=== PATIENT | male | born 1960 | race Caucasian/White ===

== ENCOUNTER → 2016-04-11 | Day surgery (SDC) | payer MEDICARE ==
[2016-04-10 11:31] LABS: BILIRUBIN NEGATIVE (NEGATIVE); BLOOD NEGATIVE (NEGATIVE); CLARITY CLEAR (CLEAR); COLOR YELLOW (YELLOW); GLUCOSE NEGATIVE (NEGATIVE); KETONE NEGATIVE (NEGATIVE); LEUKO ESTERASE NEGATIVE (NEGATIVE); NITRITE NEGATIVE (NEGATIVE); PH 6.5 (5.0-9.0); PROTEIN NEGATIVE (NEGATIVE); SPECIFIC GRAVITY 1.015 (1.005-1.030)
[2016-04-10 11:36] LABS: BACTERIA TRACE; RBC 0-2 rbc/hpf (0-2)
[2016-04-10 11:39] LABS: BASO % 0.4 % (0.0-1.0); EOS # 0.1 10*3/uL (0.0-0.4); EOS % 2.1 % (1.0-4.0); HEMATOCRIT 45.5 % (42.0-52.0); HEMOGLOBIN 15.6 g/dl (14.0-18.0); LYMPH # 1.5 10*3/uL (1.3-4.4); LYMPH % 27.2 % (27.0-41.0); MEAN CELL VOLUME 86.2 fl (80.0-94.0); MEAN CORPUSCULAR HGB 29.5 pg (27.0-31.0); MEAN CORPUSCULAR HGB CONC 34.3 g/dl (33.0-37.0); MEAN PLATELET VOLUME 10.4 fl (9.6-12.3); MONO # 0.5 10*3/uL (0.1-1.0); NEUT # 3.3 10*3/uL (2.3-7.9); NEUT % 61.3 % (47.0-73.0); PLATELET COUNT AUTOMATED 222 10*3/uL (130-400); RED BLOOD COUNT 5.28 10*6/uL (4.50-5.90); RED CELL DISTRI WIDTH 12.4 % (0-14.5); WHITE BLOOD COUNT 5.4 10*3/uL (4.8-10.8)
[2016-04-10 11:57] LABS: BUN 16 mg/dl (7-24); CARBON DIOXIDE 28 mmol/L (21-32); CHLORIDE 104 mmol/L (98-107); EST GLOM FILT AFRICAN AMERICAN > 60 ml/min; GLUCOSE 113 mg/dL (65-99); POTASSIUM 4.4 mmol/L (3.5-5.1); SODIUM 141 mmol/L (136-145)
[2016-04-10 12:03] LABS: INTERNATIONAL NORM RATIO 0.9 (2.0-3.5)
[~2016-04-11] VITALS: Ht 177.8 cm; Wt 138.3 kg
[~2016-04-11] MED LIST: AMBIEN10 MG PO; ATARAX25 MG PO; ATIVAN0.5 MG PO; BACTRIM DS 8001 TA1; CALCIUM 500 +1 EAC3 PO; CALCIUM1 CAP PO; CARDIZEM CD120 MG PO; CARDIZEM120 MG PO; CIPRO500 MG PO; CIPROFLOXACIN500 M4 PO; CIPROFLOXACIN500 MG PO; CLARITIN10 MG PO; CORDROL20 MG PO; DIOVAN HCT 25 M1 TA1 PO; DIOVAN160 MG PO; DOXYCYCLINE HY100 M3 PO; EPI EZ PEN0.5 MG/ML IM; EPI EZ PEN1 MG/ML IM; ETODOLAC400 MG PO; FLAGYL500 MG; FLAGYL500 MG PO; FLEXERIL10 MG PO; FLOMAX0.4 MG PO; GLIPIZIDE5 M1 PO; GLUCOPHAGE500 MG PO; HYDROCHLOROTHIA25 MG PO; HYDROCODONE BIT1 T11 PO; IBU-8800 MG PO; KEFLEX500 M1 PO; KEFLEX500 MG PO; LEVOFLOXACIN500 MG PO; LORAZEPAM; MEDROL DOSEPAK4 MG PO; METFORMIN500 MG PO; METRONIDAZOLE500 M1 PO; MOBIC7.5 MG PO; MOTRIN800 MG PO; Motrin,Rufen800 MG PO; NAPROSYN250 MG PO; NEURONTIN300 MG PO; NEURONTIN600 MG PO; NORCO 325 MG-51 TAB PO; NORCO 5-325 TA1 EACH PO; ORPHENADRINE E100 MG PO; OYSTER CALCIUM1 TA2; PAXIL20 MG PO; PHENERGAN W/DM120 ML PO; PLAVIX75 M1 PO; PLAVIX75 MG PO; PREVACID30 M1 PO; PRILOSEC10 M1 PO; PRILOSEC20 MG PO; PROAIR HFA0.09 MG/AC IH; PROCARDIA XL30 MG PO; Percocet 325 MG1 TAB PO; SEPTRA DS 800 M1 TAB PO; SILVADENE1% TP; TRAMADOL50 MG PO; ULTRAM50 MG PO; VICODIN 5/500 505 MG PO; VITAMIN D2400 IU PO; VITAMIN D350000 UNIT PO; VITAMIN D50000 I1 PO; ZANAFLEX CAPSULE4 MG PO; ZANTAC150 MG PO; ZITHROMAX Z PA250 MG PO; ZOCOR20 MG; ZOFRAN4 MG PO; ZOLPIDEM10 M1; Zofran4 MG PO
--- NOTE | ~2016-04-11 | O ---
[place], [place] OPERATIVE NOTE NAME: DAVID FERNÁNDEZ UNIT #: [id number] ROOM: DOCTOR: JAYRO AMAYA MD BIRTHDATE: [birth year] DOS: 04/11/2016 PREOPERATIVE DIAGNOSIS: History of invasive squamous cell carcinoma, left neck. POSTOPERATIVE DIAGNOSIS: History of invasive squamous cell carcinoma, left neck. PROCEDURE: Excision of left neck mass. SURGEON: Jayro Amaya MD BRAKE LININGS COATER: MS3. ANESTHESIA: MAC. INDICATIONS: This is a 56-year-old gentleman who had a previous left neck mass excised, which showed invasive squamous cell CA with positive margins. It was decided to take the patient back to the operating room today for reexcision. Procedure and its complications explained to the patient in detail preoperatively. Complications that were discussed included, but were not limited to bleeding, infection, hematoma/seroma/abscess formation, prolonged postoperative pain, and damage to underlying vital structures, he agreed to proceed. DESCRIPTION OF PROCEDURE: After identifying the patient, the patient was brought to the operating suite and laid in the supine position. After adequately positioning the patient, IV sedation was administered and a timeout procedure was called. The parts were then painted and draped in the usual sterile fashion. The previously placed sutures were removed and an elliptical incision was marked around the previously made incisional scar. Local anesthesia was infiltrated (1% plain lidocaine). The mass was excised to the depth of the fascia in the neck and sent for histopathological diagnosis. Hemostasis was achieved with the help of electrocautery and then the subcutaneous tissue was irrigated and approximated with the help of 3-0 Vicryl in an interrupted fashion. The skin edges were approximated with the help of 3-0 nylon in an interrupted fashion and dressing was given. The patient tolerated the procedure well and was taken to the recovery room in stable fashion. There were no complications. Dr. Jayro Amaya, the attending surgeon, was present throughout the operating case. [place], [place] OPERATIVE NOTE NAME: DAVID FERNÁNDEZ UNIT #: [id number] ROOM: DOCTOR: JAYRO AMAYA MD BIRTHDATE: [birth year] Jayro Amaya MD CM:OPRECORD:OPERATIVE NOTE [id number] JAYRO AMAYA MD 04/11/16 1106 interface
[2016-04-11 09:52] VITALS: BP 116/73
[2016-04-11 10:40] VITALS: BP 109/72
[2016-04-11 10:55] VITALS: BP 112/79
[2016-04-11 11:10] VITALS: BP 121/83
[2016-04-11 11:25] VITALS: BP 124/78
[2016-04-11 11:38] VITALS: BP 118/65
== END | disposition home or self-care (01) ==
LOC: SDC 04-10 08:00
PROVIDERS: Surgery
DX: C44.42 Squamous cell carcinoma of skin of scalp and neck (principal); R73.03 Prediabetes; Z79.02 Long term (current) use of antithrombotics/antiplatelets

== ENCOUNTER 2016-12-28 19:44 | Emergency (ER) | payer MEDICARE, OTHER ==
[~2016-12-28] VITALS: Wt 113.4 kg
[2016-12-28 20:03] LABS: BASO % 0.4 % (0.0-1.0); EOS # 0.2 10*3/uL (0.0-0.4); EOS % 1.9 % (1.0-4.0); HEMATOCRIT 47.9 % (42.0-52.0); HEMOGLOBIN 16.3 g/dl (14.0-18.0); LYMPH # 1.2 10*3/uL (1.3-4.4); LYMPH % 15.4 % (27.0-41.0); MEAN CELL VOLUME 86.6 fl (80.0-94.0); MEAN CORPUSCULAR HGB 29.5 pg (27.0-31.0); MEAN PLATELET VOLUME 10.6 fl (9.6-12.3); MONO # 0.9 10*3/uL (0.1-1.0); MONO % 10.7 % (3.0-9.0); NEUT # 5.8 10*3/uL (2.3-7.9); NEUT % 71.4 % (47.0-73.0); PLATELET COUNT AUTOMATED 195 10*3/uL (130-400); RED BLOOD COUNT 5.53 10*6/uL (4.50-5.90); WHITE BLOOD COUNT 8.1 10*3/uL (4.8-10.8)
[2016-12-28 20:13] LABS: ACT PARTIAL THROMBO TIME 22.1 SECONDS (20.8-31.5)
[2016-12-28 20:19] LABS: ALBUMIN 3.9 gm/dl (3.1-4.5); ALKALINE PHOSPHATASE 67 U/L (45-117); BUN 13 mg/dl (7-24); CHLORIDE 100 mmol/L (98-107); CREATININE 1.13 mg/dL (0.70-1.30); MAGNESIUM 1.9 mg/dL (1.5-2.1); SGOT/AST 18 IU/L (3-35); SGPT/ALT 26 U/L (12-78); SODIUM 137 mmol/L (136-145)
[2016-12-28 20:20] LABS: TROPONIN I < 0.015 ng/ml (<0.045)
[2016-12-28 21:57] VITALS: BP 124/61
[2016-12-28] MEDS ORDERED: PREDNISONE20 M1 PO (23:09)
[2016-12-28] MEDS ORDERED: ZITHROMAX250 MG PO (23:09)
== END 2016-12-28 23:34 | disposition home or self-care (01) ==
LOC: ED 19:44
PROVIDERS: Emergency Medicine Emergency Medical Services
DX: J44.1 Chronic obstructive pulmonary disease with (acute) exacerbation (principal); I10 Essential (primary) hypertension; E78.5 Hyperlipidemia, unspecified; E11.9 Type 2 diabetes mellitus without complications; K21.9 Gastro-esophageal reflux disease without esophagitis; E11.42 Type 2 diabetes mellitus with diabetic polyneuropathy; Z86.73 Personal history of transient ischemic attack (TIA), and cerebral infarction without residual deficits; Z79.899 Other long term (current) drug therapy

== ENCOUNTER 2017-04-21 17:50 | Emergency (ER) | payer MEDICARE, OTHER ==
[~2017-04-21] VITALS: Ht 177.8 cm; Wt 134.7 kg
[~2017-04-21 17:50] MED LIST changes: +PREDNISONE20 M1 PO; +ZITHROMAX250 MG PO
[2017-04-21 18:04] VITALS: BP 124/68
== END 2017-04-21 18:39 | disposition home or self-care (01) ==
LOC: ED 17:50
DX: S61.012A Laceration without foreign body of left thumb without damage to nail, initial encounter (principal); J44.9 Chronic obstructive pulmonary disease, unspecified; E11.9 Type 2 diabetes mellitus without complications; K21.9 Gastro-esophageal reflux disease without esophagitis; I10 Essential (primary) hypertension; E11.40 Type 2 diabetes mellitus with diabetic neuropathy, unspecified; Z86.73 Personal history of transient ischemic attack (TIA), and cerebral infarction without residual deficits; Z79.899 Other long term (current) drug therapy; W45.8XXA Other foreign body or object entering through skin, initial encounter; Y93.89 Activity, other specified; Y92.89 Other specified places as the place of occurrence of the external cause; Y99.8 Other external cause status

== ENCOUNTER 2017-07-25 12:44 | Emergency (ER) | payer OTHER, MEDICARE ==
[~2017-07-25] VITALS: Ht 177.8 cm; Wt 133.8 kg
[2017-07-25 13:19] LABS: BASO % 0.4 % (0.0-1.0); EOS # 0.1 10*3/uL (0.0-0.4); EOS % 2.7 % (1.0-4.0); HEMATOCRIT 46.1 % (42.0-52.0); HEMOGLOBIN 15.9 g/dl (14.0-18.0); LYMPH # 1.5 10*3/uL (1.3-4.4); LYMPH % 33.9 % (27.0-41.0); MEAN CELL VOLUME 86.5 fl (80.0-94.0); MEAN CORPUSCULAR HGB 29.8 pg (27.0-31.0); MEAN CORPUSCULAR HGB CONC 34.5 g/dl (33.0-37.0); MEAN PLATELET VOLUME 10.8 fl (9.6-12.3); MONO # 0.5 10*3/uL (0.1-1.0); MONO % 10.3 % (3.0-9.0); NEUT # 2.3 10*3/uL (2.3-7.9); NEUT % 52.5 % (47.0-73.0); PLATELET COUNT AUTOMATED 189 10*3/uL (130-400); RED BLOOD COUNT 5.33 10*6/uL (4.50-5.90); RED CELL DISTRI WIDTH 13.2 % (0-14.5); WHITE BLOOD COUNT 4.5 10*3/uL (4.8-10.8)
[2017-07-25 13:28] LABS: ACT PARTIAL THROMBO TIME 22.2 SECONDS (20.8-31.5)
[2017-07-25 13:39] LABS: ALBUMIN 3.6 gm/dl (3.1-4.5); ALKALINE PHOSPHATASE 60 U/L (45-117); BUN 15 mg/dl (7-24); CHLORIDE 102 mmol/L (98-107); CREATININE 1.17 mg/dL (0.70-1.30); SGOT/AST 18 IU/L (3-35); SGPT/ALT 31 U/L (12-78); SODIUM 138 mmol/L (136-145); TOTAL PROTEIN 6.9 gm/dL (6.4-8.2)
[2017-07-25 13:45] LABS: TROPONIN I < 0.015 ng/ml (<0.045)
[2017-07-25 13:49] VITALS: BP 146/80
[2017-07-25 15:30] LABS: BILIRUBIN NEGATIVE (NEGATIVE); BLOOD NEGATIVE (NEGATIVE); CLARITY SL CLOUDY (CLEAR); COLOR YELLOW (YELLOW); GLUCOSE NEGATIVE (NEGATIVE); KETONE NEGATIVE (NEGATIVE); LEUKO ESTERASE NEGATIVE (NEGATIVE); NITRITE NEGATIVE (NEGATIVE); PH 7.5 (5.0-9.0); SPECIFIC GRAVITY <= 1.005 (1.005-1.030)
[2017-07-25 16:05] LABS: BACTERIA TRACE; WBC 0-2 wbc/hpf (0-5)
== END 2017-07-25 16:30 | disposition home or self-care (01) ==
LOC: ED 12:44
PROVIDERS: Emergency Medicine
DX: S16.1XXA Strain of muscle, fascia and tendon at neck level, initial encounter (principal); S29.8XXA Other specified injuries of thorax, initial encounter; S39.81XA Other specified injuries of abdomen, initial encounter; N28.1 Cyst of kidney, acquired; E66.01 Morbid (severe) obesity due to excess calories; I71.2 Thoracic aortic aneurysm, without rupture; K21.9 Gastro-esophageal reflux disease without esophagitis; I10 Essential (primary) hypertension; E11.9 Type 2 diabetes mellitus without complications; I25.2 Old myocardial infarction; Z86.73 Personal history of transient ischemic attack (TIA), and cerebral infarction without residual deficits; Z90.49 Acquired absence of other specified parts of digestive tract; Z68.41 Body mass index [BMI] 40.0-44.9, adult; Z98.890 Other specified postprocedural states; Z87.891 Personal history of nicotine dependence; Z79.899 Other long term (current) drug therapy; V49.88XA Car occupant (driver) (passenger) injured in other specified transport accidents, initial encounter; Y93.89 Activity, other specified; Y92.89 Other specified places as the place of occurrence of the external cause; Y99.9 Unspecified external cause status

== ENCOUNTER 2017-08-15 23:58 | Inpatient (IN) | payer MEDICARE, OTHER ==
[~2017-08-15] VITALS: Ht 175.2 cm; Wt 133.8 kg
--- NOTE | ~2017-08-15 | PR ---
[place], [place] PROGRESS NOTE NAME: DAVID FERNÁNDEZ [facility] #: [id number] UNIT #: [id number] ROOM: 531 DOCTOR: CLARITZA KWOK MD BIRTHDATE: [birth year] DOS: 08/18/2017 SUBJECTIVE: The patient was seen today in the Cardiology Department just prior to a stress test. He is a 57-year-old man with a history of acid reflux and small ascending thoracic root dilation, who presented with chest discomfort and hypertension. Serial cardiac biomarkers have been normal and his EKG shows no acute changes. PHYSICAL EXAMINATION: VITAL SIGNS: Today his pulse is 74 and regular, blood pressure is 96/82. He is afebrile. NECK: Supple. He has no jugular distention. Carotids are full. LUNGS: Respirations are unlabored. CHEST: Clear to auscultation and percussion. The chest wall in the left anterior chest is slightly tender to palpation and partially reproduces his pains. HEART: Has a regular rhythm and S4 gallop. EXTREMITIES: Showed no edema. IMPRESSION: 1. Left precordial chest pain. 2. No evidence for acute coronary syndrome. 3. History of gastroesophageal reflux. 4. History of hypertension. 5. Type 2 diabetes mellitus. 6. Obesity. PLAN: We will proceed with an exercise myocardial perfusion study. Further recommendations will depend upon the results of his stress test. [facility] and I thank the hospitalist physicians for asking our advice regarding the patient's care. CLARITZA KWOK MD CM:PNTRANS [id number] CLARITZA KWOK MD 08/19/17 1213 interface
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
--- NOTE | ~2017-08-15 | PR ---
[place], [place] PROGRESS NOTE NAME: DAVID FERNÁNDEZ UNIT #: [id number] ROOM: 531 DOCTOR: SANDRA MONTERO MD BIRTHDATE: [birth year] DOS: 08/17/2017 CARDIOLOGY FOLLOWUP REASON FOR VISIT: Chest pain and hypertension. SUBJECTIVE: The patient is feeling better. Denies any chest pain or shortness of breath. No palpitation, no dizziness, no orthopnea, no fever and chills, no nausea or vomiting. REVIEW OF SYSTEMS: Review of the 8 systems negative except as mentioned above. RHYTHM STRIPS: The patient was currently off the monitor. PHYSICAL EXAMINATION: VITAL SIGNS: Blood pressure 100/56, pulse 68, respiratory rate was 18, weight 133.8 kilos, BMI 43.6. GENERAL: The patient is alert, comfort, in no acute distress. HEENT: Pupils are round and equal. No jaundice. Tongue was moist and pharynx was clear. NECK: Supple, no distended neck veins, no carotid bruit. Thyroid not palpable. CHEST: Symmetrical, nontender. LUNGS: Clear to auscultation bilaterally. No rales. HEART: Regular rhythm, no S3, no palpable thrills. ABDOMEN: Morbidly obese, nontender. Bowel sounds normal. EXTREMITIES: Showed trace edema and distal pulses palpable. SKIN: Warm and dry. No cyanosis, no clubbing. NEUROLOGIC: The patient is alert and oriented. No focal neurologic deficit. MEDICATIONS AND LABORATORIES: Reviewed. IMPRESSION: 1. Chest pain, myocardial infarction ruled out. 2. Hypertension. 3. Diabetes type 2. 4. Morbid obesity. 5. Acid reflux. 6. Ascending thoracic aortic root dilatation 3.7 cm. RECOMMENDATIONS: 1. Continue current medications. He had a few episodes of chest pain at rest. 2. All questions answered about his dilated thoracic aorta which is 3.7 cm. 3. Nuclear stress test is tomorrow. 4. Risk factor modification for diet, exercise and weight loss discussed. [place], [place] PROGRESS NOTE NAME: DAVID FERNÁNDEZ UNIT #: [id number] ROOM: 531 DOCTOR: SANDRA MONTERO MD BIRTHDATE: [birth year] SANDRA MONTERO MD CM:LOLLY [id number] SANDRA MONTERO MD 08/18/17 0047 interface
[2017-08-15 23:58] VITALS: BP 128/87
[2017-08-16] MEDS ORDERED: VALSARTAN40 MG PO (00:05)
[2017-08-16] MEDS ORDERED: ASPIRIN CHEWABL81 MG PO (00:05)
[2017-08-16] MEDS ORDERED: VITAMIN D50000 UNIT PO (00:06)
[2017-08-16] MEDS ORDERED: SIMVASTATIN40 MG PO (00:06)
[2017-08-16] MEDS ORDERED: METOPROLOL SUCC25 M2 PO (00:06)
[2017-08-16] MEDS ORDERED: MELATONIN1 M3 SL (00:06)
[2017-08-16 00:27] LABS: ACT PARTIAL THROMBO TIME 21.8 SECONDS (20.8-31.5)
[2017-08-16 00:30] VITALS: BP 110/64
[2017-08-16 00:32] LABS: BASO % 0.6 % (0.0-1.0); EOS # 0.2 10*3/uL (0.0-0.4); EOS % 2.1 % (1.0-4.0); HEMATOCRIT 46.2 % (42.0-52.0); HEMOGLOBIN 16.1 g/dl (14.0-18.0); LYMPH # 3.1 10*3/uL (1.3-4.4); LYMPH % 42.9 % (27.0-41.0); MEAN CELL VOLUME 86.7 fl (80.0-94.0); MEAN CORPUSCULAR HGB 30.2 pg (27.0-31.0); MEAN CORPUSCULAR HGB CONC 34.8 g/dl (33.0-37.0); MONO # 0.8 10*3/uL (0.1-1.0); MONO % 10.5 % (3.0-9.0); NEUT # 3.2 10*3/uL (2.3-7.9); NEUT % 43.8 % (47.0-73.0); PLATELET COUNT AUTOMATED 195 10*3/uL (130-400); RED BLOOD COUNT 5.33 10*6/uL (4.50-5.90); WHITE BLOOD COUNT 7.2 10*3/uL (4.8-10.8)
[2017-08-16 00:35] LABS: ALBUMIN 3.7 gm/dl (3.1-4.5); ALKALINE PHOSPHATASE 51 U/L (45-117); BUN 15 mg/dl (7-24); CHLORIDE 105 mmol/L (98-107); CREATININE 1.01 mg/dL (0.70-1.30); POTASSIUM 4.2 mmol/L (3.5-5.1); SGOT/AST 19 IU/L (3-35); SGPT/ALT 27 U/L (12-78); SODIUM 138 mmol/L (136-145); TOTAL PROTEIN 7.1 gm/dL (6.4-8.2)
[2017-08-16 00:41] LABS: TROPONIN I < 0.015 ng/ml (<0.045)
[2017-08-16 01:00] VITALS: BP 113/77
[2017-08-16 03:41] LABS: BASO % 0.5 % (0.0-1.0); EOS # 0.2 10*3/uL (0.0-0.4); EOS % 2.7 % (1.0-4.0); HEMATOCRIT 43.2 % (42.0-52.0); HEMOGLOBIN 14.9 g/dl (14.0-18.0); LYMPH # 2.6 10*3/uL (1.3-4.4); LYMPH % 39.8 % (27.0-41.0); MEAN CELL VOLUME 87.1 fl (80.0-94.0); MEAN CORPUSCULAR HGB CONC 34.5 g/dl (33.0-37.0); MEAN PLATELET VOLUME 10.8 fl (9.6-12.3); MONO # 0.6 10*3/uL (0.1-1.0); MONO % 9.8 % (3.0-9.0); PLATELET COUNT AUTOMATED 181 10*3/uL (130-400); RED BLOOD COUNT 4.96 10*6/uL (4.50-5.90); RED CELL DISTRI WIDTH 13.1 % (0-14.5); WHITE BLOOD COUNT 6.4 10*3/uL (4.8-10.8)
[2017-08-16 04:01] LABS: ALBUMIN 3.6 gm/dl (3.1-4.5); ALKALINE PHOSPHATASE 45 U/L (45-117); BUN 17 mg/dl (7-24); CHLORIDE 103 mmol/L (98-107); CREATININE 0.95 mg/dL (0.70-1.30); PHOSPHOROUS 4.1 mg/dL (2.5-4.9); POTASSIUM 4.1 mmol/L (3.5-5.1); SGOT/AST 16 IU/L (3-35); SGPT/ALT 25 U/L (12-78); SODIUM 138 mmol/L (136-145); TOTAL PROTEIN 6.6 gm/dL (6.4-8.2)
[2017-08-16 04:08] LABS: FREE T4 1.03 ng/dl (0.76-1.46)
[2017-08-16 08:00] VITALS: BP 99/59
[2017-08-16 12:00] VITALS: BP 106/60
[2017-08-16 16:00] VITALS: BP 94/60
[2017-08-16 20:00] VITALS: BP 94/55
[2017-08-17] VITALS: BP 100/67
[2017-08-17 04:00] VITALS: BP 95/56
[2017-08-17 08:00] VITALS: BP 100/56
[2017-08-17 12:00] VITALS: BP 104/63
[2017-08-17 16:00] VITALS: BP 90/48
[2017-08-17 20:00] VITALS: BP 96/72
[2017-08-18] VITALS: BP 92/58
[2017-08-18 04:00] VITALS: BP 96/64
[2017-08-18 08:00] VITALS: BP 96/82
[2017-08-18 12:00] VITALS: BP 106/70
== END 2017-08-18 17:19 | disposition home or self-care (01) | DRG 206 ==
LOC: ED 23:58 → 5E 08-16 00:57 → EDHOLD 08-16 00:57 → 5E 08-16 01:01
PROVIDERS: Family Medicine; Student in an Organized Health Care Education/Training Program
PROC: 3E033HZ Introduction of Radioactive Substance into Peripheral Vein, Percutaneous Approach (ICD-10-PCS; principal; 2017-08-18)
PROC: 4A02XM4 Measurement of Cardiac Total Activity, External Approach (ICD-10-PCS; principal; 2017-08-18)
DX: M94.0 Chondrocostal junction syndrome [Tietze] (principal); E11.40 Type 2 diabetes mellitus with diabetic neuropathy, unspecified; I71.2 Thoracic aortic aneurysm, without rupture; Z68.41 Body mass index [BMI] 40.0-44.9, adult; E11.65 Type 2 diabetes mellitus with hyperglycemia; E66.01 Morbid (severe) obesity due to excess calories; D72.820 Lymphocytosis (symptomatic); N40.1 Benign prostatic hyperplasia with lower urinary tract symptoms; N39.46 Mixed incontinence; I25.118 Atherosclerotic heart disease of native coronary artery with other forms of angina pectoris; J44.9 Chronic obstructive pulmonary disease, unspecified; K21.9 Gastro-esophageal reflux disease without esophagitis; I11.9 Hypertensive heart disease without heart failure; Z86.73 Personal history of transient ischemic attack (TIA), and cerebral infarction without residual deficits; Z90.49 Acquired absence of other specified parts of digestive tract; Z87.891 Personal history of nicotine dependence; Z82.49 Family history of ischemic heart disease and other diseases of the circulatory system; Z79.01 Long term (current) use of anticoagulants; Z79.82 Long term (current) use of aspirin; Z79.899 Other long term (current) drug therapy

== ENCOUNTER 2017-08-25 16:07 | Emergency (ER) | payer MEDICARE, OTHER ==
[~2017-08-25] VITALS: Wt 134.7 kg
[~2017-08-25 16:07] MED LIST changes: +ASPIRIN CHEWABL81 MG PO; +MELATONIN1 M3 SL; +METOPROLOL SUCC25 M2 PO; +SIMVASTATIN40 MG PO; +VALSARTAN40 MG PO; +VITAMIN D50000 UNIT PO
[2017-08-25 16:08] VITALS: BP 112/69
[2017-08-25] MEDS ORDERED: LIDEX 0.05% CRE15 GM T (16:16)
== END 2017-08-25 16:18 | disposition home or self-care (01) ==
LOC: ED 16:07
DX: S50.862A Insect bite (nonvenomous) of left forearm, initial encounter (principal); K21.9 Gastro-esophageal reflux disease without esophagitis; J44.9 Chronic obstructive pulmonary disease, unspecified; E11.9 Type 2 diabetes mellitus without complications; N40.0 Benign prostatic hyperplasia without lower urinary tract symptoms; I10 Essential (primary) hypertension; Z90.49 Acquired absence of other specified parts of digestive tract; W57.XXXA Bitten or stung by nonvenomous insect and other nonvenomous arthropods, initial encounter; Y93.89 Activity, other specified; Y92.89 Other specified places as the place of occurrence of the external cause; Y99.8 Other external cause status

== ENCOUNTER 2017-08-29 12:17 | Emergency (ER) | payer MEDICARE, OTHER ==
[~2017-08-29] VITALS: Ht 177.8 cm
[~2017-08-29 12:17] MED LIST changes: +LIDEX 0.05% CRE15 GM T
[2017-08-29 12:18] VITALS: BP 148/88
[2017-08-29] MEDS ORDERED: KEFLEX500 M1 PO (12:20)
[2017-08-29] MEDS ORDERED: CLINDAMYCIN150 MG PO (13:02)
== END 2017-08-29 13:04 | disposition home or self-care (01) ==
LOC: ED 12:17
DX: L02.414 Cutaneous abscess of left upper limb (principal); J44.1 Chronic obstructive pulmonary disease with (acute) exacerbation; K21.9 Gastro-esophageal reflux disease without esophagitis; I10 Essential (primary) hypertension; E11.65 Type 2 diabetes mellitus with hyperglycemia; Z79.4 Long term (current) use of insulin; Z79.82 Long term (current) use of aspirin; Z79.899 Other long term (current) drug therapy

== ENCOUNTER → 2017-09-05 | Outpatient (CLI) | payer MEDICARE ==
[~2017-09-05] MED LIST changes: +CIPRO250 MG PO; +CLINDAMYCIN150 MG PO
[2017-09-05 11:42] LABS: BILIRUBIN NEGATIVE (NEGATIVE); BLOOD NEGATIVE (NEGATIVE); CLARITY CLEAR (CLEAR); COLOR YELLOW (YELLOW); GLUCOSE NEGATIVE (NEGATIVE); KETONE NEGATIVE (NEGATIVE); LEUKO ESTERASE NEGATIVE (NEGATIVE); NITRITE NEGATIVE (NEGATIVE); PH 5.5 (5.0-9.0); SPECIFIC GRAVITY <= 1.005 (1.005-1.030); UROBILINOGEN 0.2 E.U./dl (0.2-1.0)
[2017-09-05 11:44] LABS: BASO % 0.4 % (0.0-1.0); EOS # 0.1 10*3/uL (0.0-0.4); EOS % 1.5 % (1.0-4.0); HEMATOCRIT 43.6 % (42.0-52.0); HEMOGLOBIN 14.9 g/dl (14.0-18.0); LYMPH # 1.8 10*3/uL (1.3-4.4); MEAN CELL VOLUME 88.1 fl (80.0-94.0); MEAN CORPUSCULAR HGB 30.1 pg (27.0-31.0); MEAN CORPUSCULAR HGB CONC 34.2 g/dl (33.0-37.0); MEAN PLATELET VOLUME 10.8 fl (9.6-12.3); MONO # 0.5 10*3/uL (0.1-1.0); MONO % 9.6 % (3.0-9.0); NEUT # 2.9 10*3/uL (2.3-7.9); NEUT % 54.3 % (47.0-73.0); PLATELET COUNT AUTOMATED 181 10*3/uL (130-400); RED BLOOD COUNT 4.95 10*6/uL (4.50-5.90); RED CELL DISTRI WIDTH 12.9 % (0-14.5); WHITE BLOOD COUNT 5.4 10*3/uL (4.8-10.8)
[2017-09-05 12:12] LABS: ALBUMIN 3.6 gm/dl (3.1-4.5); ALKALINE PHOSPHATASE 55 U/L (45-117); BUN 20 mg/dl (7-24); CHLORIDE 104 mmol/L (98-107); CREATININE 1.05 mg/dL (0.70-1.30); POTASSIUM 4.3 mmol/L (3.5-5.1); SGOT/AST 17 IU/L (3-35); SGPT/ALT 24 U/L (12-78); SODIUM 139 mmol/L (136-145); TOTAL PROTEIN 6.9 gm/dL (6.4-8.2)
[2017-09-05 12:28] LABS: WBC 0-2 wbc/hpf (0-5)
== END | disposition home or self-care (01) ==
LOC: LAB 10:30 → US 10:30
PROVIDERS: Urology
DX: N28.1 Cyst of kidney, acquired (principal); I10 Essential (primary) hypertension; N39.0 Urinary tract infection, site not specified; N28.89 Other specified disorders of kidney and ureter

== ENCOUNTER 2017-09-17 14:13 | Emergency (ER) | payer MEDICARE ==
[~2017-09-17] VITALS: Ht 177.8 cm; Wt 132.4 kg
[~2017-09-17 14:13] MED LIST changes: -CIPRO250 MG PO
[2017-09-17 15:24] LABS: BILIRUBIN NEGATIVE (NEGATIVE); BLOOD NEGATIVE (NEGATIVE); CLARITY CLEAR (CLEAR); COLOR YELLOW (YELLOW); GLUCOSE NEGATIVE (NEGATIVE); KETONE TRACE (NEGATIVE); LEUKO ESTERASE NEGATIVE (NEGATIVE); NITRITE NEGATIVE (NEGATIVE); PH 5.5 (5.0-9.0); SPECIFIC GRAVITY 1.025 (1.005-1.030)
[2017-09-17 15:31] LABS: BACTERIA TRACE; MUCOUS 1+
[2017-09-17 15:32] LABS: EPITHELIAL CELLS 0-2; RBC 0-2 rbc/hpf (0-2)
[2017-09-17 16:18] LABS: BASO % 0.3 % (0.0-1.0); EOS # 0.1 10*3/uL (0.0-0.4); EOS % 0.9 % (1.0-4.0); HEMATOCRIT 45.5 % (42.0-52.0); HEMOGLOBIN 15.4 g/dl (14.0-18.0); LYMPH # 1.8 10*3/uL (1.3-4.4); LYMPH % 19.2 % (27.0-41.0); MEAN CORPUSCULAR HGB 29.8 pg (27.0-31.0); MEAN CORPUSCULAR HGB CONC 33.8 g/dl (33.0-37.0); MEAN PLATELET VOLUME 11.2 fl (9.6-12.3); MONO % 10.4 % (3.0-9.0); NEUT # 6.6 10*3/uL (2.3-7.9); PLATELET COUNT AUTOMATED 189 10*3/uL (130-400); RED BLOOD COUNT 5.17 10*6/uL (4.50-5.90); RED CELL DISTRI WIDTH 13.1 % (0-14.5); WHITE BLOOD COUNT 9.6 10*3/uL (4.8-10.8)
[2017-09-17 16:32] LABS: ALBUMIN 3.7 gm/dl (3.1-4.5); ALKALINE PHOSPHATASE 63 U/L (45-117); BUN 23 mg/dl (7-24); CHLORIDE 103 mmol/L (98-107); CREATININE 1.26 mg/dL (0.70-1.30); POTASSIUM 3.8 mmol/L (3.5-5.1); SGOT/AST 9 IU/L (3-35); SGPT/ALT 23 U/L (12-78); SODIUM 137 mmol/L (136-145); TOTAL PROTEIN 7.6 gm/dL (6.4-8.2)
[2017-09-17 17:29] VITALS: BP 140/72
[2017-09-17] MEDS ORDERED: FLAGYL500 MG PO (18:07)
[2017-09-17] MEDS ORDERED: CIPRO250 MG PO (18:07)
== END 2017-09-17 18:15 | disposition home or self-care (01) ==
LOC: ED 14:13
PROVIDERS: Nurse Practitioner Family
DX: K57.92 Diverticulitis of intestine, part unspecified, without perforation or abscess without bleeding (principal); Z79.899 Other long term (current) drug therapy; Z79.82 Long term (current) use of aspirin; Z87.891 Personal history of nicotine dependence

== ENCOUNTER → 2018-02-16 | Outpatient (CLI) | payer MEDICARE ==
[~2018-02-16] MED LIST changes: +ANAPROX DS550 MG PO; +AUGMENTIN 875-875 MG PO; +CIPRO250 MG PO
== END | disposition home or self-care (01) ==
LOC: MRI 10:56
DX: M19.011 Primary osteoarthritis, right shoulder (principal); M75.51 Bursitis of right shoulder

== ENCOUNTER → 2018-04-20 | Day surgery (SDC) | payer MEDICARE | END | disposition home or self-care (01) | DX: M75.51 Bursitis of right shoulder (principal); M19.011 Primary osteoarthritis, right shoulder; M75.81 Other shoulder lesions, right shoulder; I10 Essential (primary) hypertension; E11.9 Type 2 diabetes mellitus without complications; F32.9 Major depressive disorder, single episode, unspecified; G89.29 Other chronic pain; Z79.899 Other long term (current) drug therapy; Z90.49 Acquired absence of other specified parts of digestive tract; Z98.890 Other specified postprocedural states; Z82.49 Family history of ischemic heart disease and other diseases of the circulatory system ==

== ENCOUNTER → 2018-10-15 | Outpatient (CLI) | payer MEDICARE | END | disposition home or self-care (01) | LOC: RAD 14:47 | DX: M25.611 Stiffness of right shoulder, not elsewhere classified (principal); M79.2 Neuralgia and neuritis, unspecified ==

== ENCOUNTER 2019-04-05 17:45 | Inpatient (IN) | payer MEDICARE ==
[~2019-04-05] VITALS: Ht 177.8 cm; Wt 139.5 kg
[2019-04-05 17:45] VITALS: BP 107/80
[2019-04-05 20:05] VITALS: BP 109/67
[2019-04-05 20:31] LABS: BILIRUBIN NEGATIVE (NEGATIVE); BLOOD NEGATIVE (NEGATIVE); CLARITY CLEAR (CLEAR); COLOR YELLOW (YELLOW); GLUCOSE NEGATIVE (NEGATIVE); KETONE NEGATIVE (NEGATIVE); LEUKO ESTERASE NEGATIVE (NEGATIVE); NITRITE NEGATIVE (NEGATIVE); PH 5.5 (5.0-9.0); SPECIFIC GRAVITY >= 1.030 (1.005-1.030)
[2019-04-05 21:10] LABS: BASO % 0.5 % (0.0-1.0); EOS # 0.1 10*3/uL (0.0-0.4); EOS % 2.1 % (1.0-4.0); HEMATOCRIT 48.1 % (42.0-52.0); HEMOGLOBIN 16.2 g/dl (14.0-18.0); LYMPH # 2.1 10*3/uL (1.3-4.4); LYMPH % 32.3 % (27.0-41.0); MEAN CELL VOLUME 90.4 fl (80.0-94.0); MEAN CORPUSCULAR HGB 30.5 pg (27.0-31.0); MEAN CORPUSCULAR HGB CONC 33.7 g/dl (33.0-37.0); MONO # 0.6 10*3/uL (0.1-1.0); MONO % 9.5 % (3.0-9.0); NEUT # 3.6 10*3/uL (2.3-7.9); NEUT % 55.4 % (47.0-73.0); PLATELET COUNT AUTOMATED 213 10*3/uL (130-400); RED BLOOD COUNT 5.32 10*6/uL (4.50-5.90); RED CELL DISTRI WIDTH 12.4 % (0-14.5); WHITE BLOOD COUNT 6.5 10*3/uL (4.8-10.8)
[2019-04-05 21:27] LABS: ALBUMIN 3.7 gm/dl (3.1-4.5); ALKALINE PHOSPHATASE 57 U/L (45-117); BUN 18 mg/dl (7-24); CHLORIDE 105 mmol/L (98-107); CREATININE 1.04 mg/dL (0.70-1.30); LIPASE 113 U/L (73-393); POTASSIUM 4.3 mmol/L (3.5-5.1); SGOT/AST 13 IU/L (3-35); SGPT/ALT 31 U/L (12-78); SODIUM 137 mmol/L (136-145); TOTAL PROTEIN 7.2 gm/dL (6.4-8.2); TROPONIN I < 0.015 ng/ml (<0.045)
[2019-04-05 21:30] LABS: ACT PARTIAL THROMBO TIME 23.9 SECONDS (20.0-32.1); INTERNATIONAL NORM RATIO 0.9 (2.0-3.5)
[2019-04-05 23:05] VITALS: BP 108/69
[2019-04-05 23:40] VITALS: BP 106/70
[2019-04-06] VITALS (7 sets, daily range): BP systolic 90–116; BP diastolic 51–80
--- NOTE | 2019-04-06 00:40 | NUR ---
A 59, admitted to , under the services of FRANCISCO Shook DO with a diagnosis of CHEST PAIN. Chief complaint is COUGH,SPUTUM. Patient arrived via wheel chair from ER. Monitor applied. Initial assessment completed. Vital signs taken and recorded. FRANCISCO SHOOK DO notified of admission to the unit. Orders received. See assessment for past medical history, medications and allergies. Patient and/or family oriented to unit. [facility]LO[facility] visitation policy reviewed. Clothing/patient valuable form completed. ATIYA ZENG
[2019-04-06] MEDS ORDERED: METFORMIN XR500 MG PO (00:49)
[2019-04-06] MEDS ORDERED: DOXAZOSIN MESYLA1 MG PO (00:51)
[2019-04-06] MEDS ORDERED: TIZANIDINE HCL4 MG PO (00:52)
--- NOTE | 2019-04-06 01:21 | NUR ---
NOTIFIED DR. RIBEIRO MED REC IS UP TO DATE. PATIENT REQUESTING A SLEEPING PILL. 15MG RESTORIL ORDERED. WILL CONTINUE TO MONITOR.
[2019-04-06 06:57] LABS: BASO % 0.5 % (0.0-1.0); EOS # 0.1 10*3/uL (0.0-0.4); EOS % 1.9 % (1.0-4.0); HEMATOCRIT 45.8 % (42.0-52.0); HEMOGLOBIN 15.2 g/dl (14.0-18.0); LYMPH # 2.4 10*3/uL (1.3-4.4); LYMPH % 40.1 % (27.0-41.0); MEAN CELL VOLUME 90.3 fl (80.0-94.0); MEAN CORPUSCULAR HGB CONC 33.2 g/dl (33.0-37.0); MEAN PLATELET VOLUME 10.9 fl (9.6-12.3); MONO # 0.6 10*3/uL (0.1-1.0); MONO % 9.3 % (3.0-9.0); NEUT # 2.9 10*3/uL (2.3-7.9); PLATELET COUNT AUTOMATED 188 10*3/uL (130-400); RED BLOOD COUNT 5.07 10*6/uL (4.50-5.90); RED CELL DISTRI WIDTH 12.5 % (0-14.5); WHITE BLOOD COUNT 5.9 10*3/uL (4.8-10.8)
[2019-04-06 07:22] LABS: CHLORIDE 103 mmol/L (98-107); POTASSIUM 4.1 mmol/L (3.5-5.1); SODIUM 138 mmol/L (136-145)
[2019-04-06 07:39] LABS: BUN 18 mg/dl (7-24); CHOLESTEROL 186 mg/dL (<200); CREATININE 1.05 mg/dL (0.70-1.30); HDL CHOLESTEROL 32 mg/dl (40-60); LDL CHOLESTEROL 103 mg/dL (9-159); PHOSPHOROUS 4.1 mg/dL (2.5-4.9); TRIGLYCERIDES 256 mg/dl (<150); VLDL CHOLESTEROL 51 mg/dL (6-40)
--- NOTE | 2019-04-06 08:14 | NUR ---
PT AMBULATED TO BR HR 160, UPON RETURNING TO BED HR DECREASED TO 90'S. PT STATES HE GETS SHORT OF BREATH. DR BELTRAN ON UNIT AND NOTIFIED.
--- NOTE | 2019-04-06 10:51 | NUR ---
CONSULT CALLED TO THE ANSWERING SERVICE FOR DR BURNS.
--- NOTE | 2019-04-06 10:53 | NUR ---
DR FORREST CALLED NOTIFIED OF CONSULT. HE STATES HE WILL SEE HIM LATER TODAY
--- NOTE | 2019-04-06 12:40 | NUR ---
[employer] in to talk to patient. Patient states lives at home with . There are few steps in the home. Physician: [facility] Home health services: none Patient's level of ADLs: INDEPENDENT Patient has working utilities: all working DME: none Follow-up physician's appointment after d/c: will be made by hospitalist nurse director upon discharge Does patient want to access PORTAL?: no Discharge plan discussed with patient, he states he lives at home with , he is independent in adls and ambulation, he states he will be returning home when medically stable and denies any home needs, case management will follow. BEN CHACON
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
[2019-04-07] VITALS: BP 96/50
[2019-04-07 08:00] VITALS: BP 102/76
[2019-04-07 12:00] VITALS: BP 97/64
[2019-04-07 16:00] VITALS: BP 93/66
[2019-04-07 20:00] VITALS: BP 96/59
[2019-04-08] VITALS: BP 98/62
--- NOTE | 2019-04-08 00:47 | NUR ---
PRN RESTORIL EFFECTIVE, PATIENT SLEEPING WITH EASY AND REGULAR RESPERS ON ROOM AIR. CALL LIGHT IS WITHIN REACH.
[2019-04-08 05:43] LABS: BASO % 0.3 % (0.0-1.0); EOS # 0.2 10*3/uL (0.0-0.4); EOS % 2.4 % (1.0-4.0); HEMATOCRIT 46.1 % (42.0-52.0); HEMOGLOBIN 15.5 g/dl (14.0-18.0); LYMPH # 2.3 10*3/uL (1.3-4.4); MEAN CELL VOLUME 88.5 fl (80.0-94.0); MEAN CORPUSCULAR HGB 29.8 pg (27.0-31.0); MEAN CORPUSCULAR HGB CONC 33.6 g/dl (33.0-37.0); MEAN PLATELET VOLUME 10.8 fl (9.6-12.3); MONO # 0.6 10*3/uL (0.1-1.0); MONO % 10.1 % (3.0-9.0); NEUT # 3.1 10*3/uL (2.3-7.9); NEUT % 49.9 % (47.0-73.0); PLATELET COUNT AUTOMATED 188 10*3/uL (130-400); RED BLOOD COUNT 5.21 10*6/uL (4.50-5.90); RED CELL DISTRI WIDTH 12.2 % (0-14.5); WHITE BLOOD COUNT 6.1 10*3/uL (4.8-10.8)
[2019-04-08 06:02] LABS: CREATININE 1.27 mg/dL (0.70-1.30)
[2019-04-08 08:00] VITALS: BP 102/64
--- NOTE | 2019-04-08 08:30 | NUR ---
Patient resting quietly with no c/o discomfort. Respirations easy and regular. Vital signs stable. No overt distress. ATIYA OVALLE R
--- NOTE | 2019-04-08 09:00 | NUR ---
case management visits with patient, he will return home when medically stable and denies any home needs, he is having a stress test today
--- NOTE | 2019-04-08 10:20 | NUR ---
INFORMED CONSENT OBTAINED FOR A LEXISCAN STRESS TEST WITH DR. FORREST. RESTING EKG NSR WITH A HT RT OF 86 AND BP OF 94/60. POX 97% VIA RA, LUNGS CLEAR FADUMO. COMPLETED ONE MINUTE OF A LEXISCAN PROTOCOL RECEIVING LEXISCAN 0.4 MG OVER 10 SECONDS. DEVELOPED CHEST TIGHTNESS THAT WAS RELIEVED IN RECOVERY. HAD A PEAK HT RT OF 115. WITH A BP OF 90/58. LAST RECOVERY HT RT OF 105, WITH A BP OF 98/66. AWAITING NUCLEAR IMAGING IN STABLE CONDITION.
[2019-04-08] MEDS ORDERED: MOTRIN 600 MG E4 TAB PO (14:48)
--- NOTE | 2019-04-08 15:48 | NUR ---
Discharge instructions reviewed with patient/family. Patient receptive and verbalizes understanding. Follow-up care arranged. Written instructions given to patient/family. ATIYA OVALLE
== END 2019-04-08 15:48 | disposition home or self-care (01) | DRG 206 ==
LOC: ED 17:45 → 4E 23:58 → EDHOLD 23:58 → 4E 04-06 00:13
PROVIDERS: Physician Assistant; Student in an Organized Health Care Education/Training Program; ADMIT Internal Medicine
PROC: 3E073KZ Introduction of Other Diagnostic Substance into Coronary Artery, Percutaneous Approach (ICD-10-PCS; principal; 2019-04-08)
PROC: 4A02XM4 Measurement of Cardiac Total Activity, External Approach (ICD-10-PCS; principal; 2019-04-08)
DX: M94.0 Chondrocostal junction syndrome [Tietze] (principal); I50.32 Chronic diastolic (congestive) heart failure; E44.0 Moderate protein-calorie malnutrition; Z68.41 Body mass index [BMI] 40.0-44.9, adult; K21.9 Gastro-esophageal reflux disease without esophagitis; N40.0 Benign prostatic hyperplasia without lower urinary tract symptoms; E66.01 Morbid (severe) obesity due to excess calories; E11.65 Type 2 diabetes mellitus with hyperglycemia; E78.00 Pure hypercholesterolemia, unspecified; I11.0 Hypertensive heart disease with heart failure; Z90.49 Acquired absence of other specified parts of digestive tract; Z82.49 Family history of ischemic heart disease and other diseases of the circulatory system; Z80.3 Family history of malignant neoplasm of breast; Z83.3 Family history of diabetes mellitus; Z86.73 Personal history of transient ischemic attack (TIA), and cerebral infarction without residual deficits; Z79.82 Long term (current) use of aspirin; Z79.899 Other long term (current) drug therapy

== ENCOUNTER 2019-04-28 18:01 | Emergency (ER) | payer MEDICARE ==
[~2019-04-28] VITALS: Ht 177.8 cm; Wt 138.3 kg
[~2019-04-28 18:01] MED LIST changes: +DOXAZOSIN MESYLA1 MG PO; +METFORMIN XR500 MG PO; +MOTRIN 600 MG E4 TAB PO; +TIZANIDINE HCL4 MG PO
[2019-04-28 18:34] LABS: BASO % 0.3 % (0.0-1.0); EOS # 0.1 10*3/uL (0.0-0.4); HEMATOCRIT 46.9 % (42.0-52.0); HEMOGLOBIN 15.8 g/dl (14.0-18.0); LYMPH % 32.7 % (27.0-41.0); MEAN CELL VOLUME 89.8 fl (80.0-94.0); MEAN CORPUSCULAR HGB 30.3 pg (27.0-31.0); MEAN CORPUSCULAR HGB CONC 33.7 g/dl (33.0-37.0); MEAN PLATELET VOLUME 10.9 fl (9.6-12.3); MONO # 0.6 10*3/uL (0.1-1.0); MONO % 9.4 % (3.0-9.0); NEUT # 3.3 10*3/uL (2.3-7.9); NEUT % 55.4 % (47.0-73.0); PLATELET COUNT AUTOMATED 201 10*3/uL (130-400); RED BLOOD COUNT 5.22 10*6/uL (4.50-5.90); RED CELL DISTRI WIDTH 12.5 % (0-14.5)
[2019-04-28 18:45] LABS: ACT PARTIAL THROMBO TIME 23.8 SECONDS (20.0-32.1); INTERNATIONAL NORM RATIO 0.9 (2.0-3.5)
[2019-04-28 18:52] LABS: ALKALINE PHOSPHATASE 57 U/L (45-117); BUN 15 mg/dl (7-24); CHLORIDE 104 mmol/L (98-107); CREATININE 1.13 mg/dL (0.70-1.30); POTASSIUM 4.1 mmol/L (3.5-5.1); SGOT/AST 15 IU/L (3-35); SGPT/ALT 35 U/L (12-78); SODIUM 138 mmol/L (136-145); TOTAL PROTEIN 7.4 gm/dL (6.4-8.2)
[2019-04-28 18:53] LABS: TROPONIN I < 0.015 ng/ml (<0.045)
[2019-04-28 20:11] LABS: LIPASE 103 U/L (73-393)
[2019-04-28 22:30] VITALS: BP 115/69
[2019-04-28] MEDS ORDERED: CARAFATE1 GM/10 ML PO (23:16)
[2019-06-04] MEDS ORDERED: PROTONIX20 MG PO (10:12)
== END 2019-04-28 23:51 | disposition home or self-care (01) ==
LOC: ED 18:01
PROVIDERS: Emergency Medicine
DX: K21.9 Gastro-esophageal reflux disease without esophagitis (principal); E66.01 Morbid (severe) obesity due to excess calories; I11.0 Hypertensive heart disease with heart failure; I50.9 Heart failure, unspecified; E11.9 Type 2 diabetes mellitus without complications; E78.00 Pure hypercholesterolemia, unspecified; Z87.891 Personal history of nicotine dependence; Z79.899 Other long term (current) drug therapy; Z79.82 Long term (current) use of aspirin; Z68.41 Body mass index [BMI] 40.0-44.9, adult; Z86.73 Personal history of transient ischemic attack (TIA), and cerebral infarction without residual deficits

== ENCOUNTER → 2019-06-09 | Day surgery (SDC) | payer MEDICARE ==
[~2019-06-09] VITALS: Ht 177.8 cm; Wt 136.1 kg
[~2019-06-09] MED LIST changes: +CARAFATE1 GM/10 ML PO; +PROTONIX20 MG PO
[2019-06-09 06:46] VITALS: BP 107/71
[2019-06-09 07:19] VITALS: BP 120/75
[2019-06-09 07:34] VITALS: BP 120/74
[2019-06-09 07:47] VITALS: BP 109/64
== END | disposition home or self-care (01) ==
LOC: SDC 06-03 08:00
DX: K29.50 Unspecified chronic gastritis without bleeding (principal); E11.9 Type 2 diabetes mellitus without complications; E03.9 Hypothyroidism, unspecified; J44.9 Chronic obstructive pulmonary disease, unspecified; F32.9 Major depressive disorder, single episode, unspecified; I10 Essential (primary) hypertension; E66.9 Obesity, unspecified; Z68.41 Body mass index [BMI] 40.0-44.9, adult; Z82.49 Family history of ischemic heart disease and other diseases of the circulatory system; Z83.3 Family history of diabetes mellitus

== ENCOUNTER → 2020-03-13 | Outpatient (CLI) | payer MEDICARE | END | disposition home or self-care (01) | LOC: COVID19 11:33 | PROVIDERS: ATTEND Family Medicine | DX: Z20.828 Contact with and (suspected) exposure to other viral communicable diseases (principal) ==

== ENCOUNTER 2020-06-02 21:34 | Emergency (ER) | payer OTHER ==
[~2020-06-02] VITALS: Ht 177.8 cm; Wt 131.5 kg
[2020-06-02 21:49] VITALS: BP 139/74
[2020-06-02 22:11] LABS: BASO % 0.3 % (0.0-1.0); EOS # 0.1 10*3/uL (0.0-0.4); HEMATOCRIT 47.1 % (42.0-52.0); LYMPH # 0.6 10*3/uL (1.3-4.4); LYMPH % 8.2 % (27.0-41.0); MEAN CELL VOLUME 88.5 fl (80.0-94.0); MEAN CORPUSCULAR HGB 30.3 pg (27.0-31.0); MEAN CORPUSCULAR HGB CONC 34.2 g/dl (33.0-37.0); MEAN PLATELET VOLUME 10.8 fl (9.6-12.3); MONO # 0.6 10*3/uL (0.1-1.0); NEUT # 6.5 10*3/uL (2.3-7.9); NEUT % 83.2 % (47.0-73.0); PLATELET COUNT AUTOMATED 212 10*3/uL (130-400); RED BLOOD COUNT 5.32 10*6/uL (4.50-5.90); WHITE BLOOD COUNT 7.8 10*3/uL (4.8-10.8)
[2020-06-02 22:28] LABS: ALBUMIN 3.8 gm/dl (3.1-4.5); ALKALINE PHOSPHATASE 55 U/L (45-117); BUN 20 mg/dl (7-24); CHLORIDE 104 mmol/L (98-107); CREATININE 1.14 mg/dL (0.70-1.30); LIPASE 193 U/L (73-393); SGOT/AST 8 IU/L (3-35); SGPT/ALT 28 U/L (12-78); SODIUM 136 mmol/L (136-145); TOTAL PROTEIN 7.1 gm/dL (6.4-8.2)
[2020-06-02 22:39] LABS: TROPONIN I < 0.015 ng/ml (<0.045)
[2020-06-02 22:43] LABS: THYROID STIM HORMONE (HS) 1.48 uIU/ml (0.358-4.75)
[2020-06-02 23:18] LABS: BILIRUBIN 1+ (Negative); BLOOD Negative (Negative); CLARITY Clear (Clear); GLUCOSE Negative (Negative); KETONE Trace (Negative); LEUKO ESTERASE Negative (Negative); NITRITE Negative (Negative); SPECIFIC GRAVITY >= 1.030 (1.001-1.030)
[2020-06-02 23:21] LABS: COLOR Dark Yellow (Yellow)
[2020-06-02 23:40] LABS: BACTERIA TRACE; EPITHELIAL CELLS 0-2; MUCOUS 2+; WBC 0-2 wbc/hpf (0-5)
[2020-06-03] MEDS ORDERED: DICYCLOMINE HCL20 MG PO (00:59)
[2020-06-03] MEDS ORDERED: ZOFRAN4 MG PO (00:59)
== END 2020-06-03 01:14 | disposition home or self-care (01) ==
LOC: ED 21:34
PROVIDERS: Emergency Medicine
DX: K52.89 Other specified noninfective gastroenteritis and colitis (principal); J44.9 Chronic obstructive pulmonary disease, unspecified; K21.9 Gastro-esophageal reflux disease without esophagitis; F32.9 Major depressive disorder, single episode, unspecified; I10 Essential (primary) hypertension; Z86.73 Personal history of transient ischemic attack (TIA), and cerebral infarction without residual deficits; Z79.899 Other long term (current) drug therapy; Z98.890 Other specified postprocedural states; Z90.49 Acquired absence of other specified parts of digestive tract

== ENCOUNTER → 2020-08-25 | Outpatient (CLI) | payer OTHER ==
[~2020-08-25] MED LIST changes: +DICYCLOMINE HCL20 MG PO
== END | disposition home or self-care (01) ==
LOC: RAD 14:44
PROVIDERS: ATTEND Family Medicine
DX: M17.11 Unilateral primary osteoarthritis, right knee (principal)

== ENCOUNTER 2020-12-20 15:31 | Emergency (ER) | payer OTHER ==
[~2020-12-20] VITALS: Ht 177.8 cm; Wt 131.5 kg
[2020-12-20 17:12] VITALS: BP 121/78
[2020-12-20 19:29] LABS: HEMATOCRIT 45.7 % (42.0-52.0); MEAN CELL VOLUME 89.8 fl (80.0-94.0); MEAN CORPUSCULAR HGB 29.9 pg (27.0-31.0); MEAN CORPUSCULAR HGB CONC 33.3 g/dl (33.0-37.0); MEAN PLATELET VOLUME 10.8 fl (9.6-12.3); PLATELET COUNT AUTOMATED 181 10*3/uL (130-400); RED BLOOD COUNT 5.09 10*6/uL (4.50-5.90); RED CELL DISTRI WIDTH 13.2 % (0-14.5); WHITE BLOOD COUNT 14.3 10*3/uL (4.8-10.8)
[2020-12-20 19:48] LABS: ALBUMIN 3.6 gm/dl (3.1-4.5); ALKALINE PHOSPHATASE 63 U/L (45-117); BUN 14 mg/dl (7-24); CHLORIDE 99 mmol/L (98-107); SGOT/AST 13 IU/L (3-35); SGPT/ALT 23 U/L (12-78); SODIUM 135 mmol/L (136-145); TOTAL PROTEIN 7.5 gm/dL (6.4-8.2)
[2020-12-20 19:51] LABS: TOTAL CELLS COUNTED 100 #CELLS
[2020-12-20 19:51] LABS: BILIRUBIN 1+ (Negative); BLOOD 1+ (Negative); CLARITY Cloudy (Clear); COLOR Dark Yellow (Yellow); GLUCOSE Negative (Negative); KETONE Trace (Negative); LEUKO ESTERASE 2+ (Negative); NITRITE Positive (Negative); SPECIFIC GRAVITY >= 1.030 (1.001-1.030)
[2020-12-20 19:52] LABS: PLATELET SUFFICIENCY NORMAL (NORMAL); POLYCHROMASIA SLIGHT
[2020-12-20 20:05] LABS: BACTERIA 4+; EPITHELIAL CELLS 0-2; WBC 51-100 wbc/hpf (0-5)
[2020-12-20] MEDS ORDERED: CIPRO500 MG PO (20:53)
== END 2020-12-20 22:21 | disposition home or self-care (01) ==
LOC: ED 15:31
PROVIDERS: Emergency Medicine; Physician Assistant
DX: N39.0 Urinary tract infection, site not specified (principal); Z79.899 Other long term (current) drug therapy; Z79.82 Long term (current) use of aspirin; Z90.49 Acquired absence of other specified parts of digestive tract; Z90.89 Acquired absence of other organs; Z87.891 Personal history of nicotine dependence

== ENCOUNTER 2021-04-09 15:48 | Emergency (ER) | payer OTHER ==
[2021-04-09 16:02] VITALS: BP 118/64
[2021-04-09] MEDS ORDERED: PROVENTIL HFA6.7 GM INH (21:39)
[2021-04-09] MEDS ORDERED: AMOXICILLIN500 M2 PO (21:39)
[2021-04-09] MEDS ORDERED: PREDNISONE20 M1 PO (21:39)
== END 2021-04-09 22:41 | disposition home or self-care (01) ==
LOC: ED 15:48
DX: U07.1 COVID-19 (principal); J02.9 Acute pharyngitis, unspecified; Z79.899 Other long term (current) drug therapy; Z79.82 Long term (current) use of aspirin; Z87.891 Personal history of nicotine dependence

== ENCOUNTER 2021-08-08 15:08 | Emergency (ER) | payer OTHER ==
[~2021-08-08 15:08] MED LIST changes: +AMOXICILLIN500 M2 PO; +PROVENTIL HFA6.7 GM INH
[2021-08-08 15:26] VITALS: BP 132/86
[2021-08-08 19:37] LABS: BASO % 0.2 % (0.0-1.0); EOS # 0.2 10*3/uL (0.0-0.4); LYMPH # 2.1 10*3/uL (1.3-4.4); LYMPH % 25.5 % (27.0-41.0); MEAN CELL VOLUME 86.7 fl (80.0-94.0); MEAN CORPUSCULAR HGB 28.9 pg (27.0-31.0); MEAN CORPUSCULAR HGB CONC 33.4 g/dl (33.0-37.0); MEAN PLATELET VOLUME 10.8 fl (9.6-12.3); MONO # 0.6 10*3/uL (0.1-1.0); MONO % 7.2 % (3.0-9.0); NEUT # 5.4 10*3/uL (2.3-7.9); PLATELET COUNT AUTOMATED 261 10*3/uL (130-400); RED BLOOD COUNT 5.77 10*6/uL (4.50-5.90); RED CELL DISTRI WIDTH 13.1 % (0-14.5); WHITE BLOOD COUNT 8.4 10*3/uL (4.8-10.8)
[2021-08-08 20:04] LABS: ALKALINE PHOSPHATASE 61 U/L (45-117); BUN 15 mg/dl (7-24); CHLORIDE 102 mmol/L (98-107); CREATININE 0.96 mg/dL (0.70-1.30); POTASSIUM 4.4 mmol/L (3.5-5.1); SGOT/AST 16 IU/L (3-35); SGPT/ALT 24 U/L (12-78); SODIUM 136 mmol/L (136-145); TOTAL PROTEIN 8.3 gm/dL (6.4-8.2)
[2021-08-08 20:27] LABS: BILIRUBIN Negative (Negative); BLOOD Negative (Negative); CLARITY Clear (Clear); COLOR Yellow (Yellow); GLUCOSE Negative (Negative); KETONE Negative (Negative); LEUKO ESTERASE Negative (Negative); NITRITE Negative (Negative); PH 5.5 (4.5-8.0)
[2021-08-08 20:44] LABS: RBC 0-2 rbc/hpf (0-2)
[2021-08-08 20:45] LABS: BACTERIA TRACE
[2021-08-08] MEDS ORDERED: MEDI-MECLIZINE25 MG PO (22:00)
== END 2021-08-08 22:21 | disposition home or self-care (01) ==
LOC: ED 15:08
PROVIDERS: Physician Assistant
DX: R42 Dizziness and giddiness (principal); H92.01 Otalgia, right ear; R51.9 Headache, unspecified; Z88.8 Allergy status to other drugs, medicaments and biological substances; Z79.899 Other long term (current) drug therapy; Z79.82 Long term (current) use of aspirin; Z98.890 Other specified postprocedural states; Z90.49 Acquired absence of other specified parts of digestive tract; Z90.89 Acquired absence of other organs; Z87.891 Personal history of nicotine dependence

== ENCOUNTER 2021-11-30 14:08 | Emergency (ER) | payer OTHER ==
[~2021-11-30] VITALS: Ht 177.8 cm; Wt 129.3 kg
[~2021-11-30 14:08] MED LIST changes: +MEDI-MECLIZINE25 MG PO
[2021-11-30 14:31] VITALS: BP 142/78
[2021-11-30] MEDS ORDERED: PEPCID40 MG PO (15:10)
== END 2021-11-30 15:38 | disposition home or self-care (01) ==
LOC: ED 14:08
DX: T63.441A Toxic effect of venom of bees, accidental (unintentional), initial encounter (principal); Z88.8 Allergy status to other drugs, medicaments and biological substances; Z79.899 Other long term (current) drug therapy; Z79.82 Long term (current) use of aspirin; Z98.890 Other specified postprocedural states; Z90.49 Acquired absence of other specified parts of digestive tract; Y92.89 Other specified places as the place of occurrence of the external cause

== ENCOUNTER 2021-12-16 22:33 | Emergency (ER) | payer OTHER ==
[~2021-12-16] VITALS: Ht 180.3 cm; Wt 126.1 kg
[~2021-12-16 22:33] MED LIST changes: +PEPCID40 MG PO
[2021-12-16 23:42] LABS: BASO % 0.3 % (0.0-1.0); EOS # 0.1 10*3/uL (0.0-0.4); EOS % 0.9 % (1.0-4.0); HEMATOCRIT 49.4 % (42.0-52.0); LYMPH # 2.2 10*3/uL (1.3-4.4); LYMPH % 15.6 % (27.0-41.0); MEAN CELL VOLUME 87.4 fl (80.0-94.0); MEAN CORPUSCULAR HGB 29.4 pg (27.0-31.0); MEAN CORPUSCULAR HGB CONC 33.6 g/dl (33.0-37.0); MEAN PLATELET VOLUME 10.7 fl (9.6-12.3); MONO # 0.9 10*3/uL (0.1-1.0); MONO % 6.4 % (3.0-9.0); NEUT # 10.6 10*3/uL (2.3-7.9); NEUT % 76.5 % (47.0-73.0); PLATELET COUNT AUTOMATED 223 10*3/uL (130-400); RED BLOOD COUNT 5.65 10*6/uL (4.50-5.90); RED CELL DISTRI WIDTH 13.2 % (0-14.5); WHITE BLOOD COUNT 13.9 10*3/uL (4.8-10.8)
[2021-12-16 23:54] LABS: ACT PARTIAL THROMBO TIME 26.2 SECONDS (20.0-32.1)
[2021-12-16 23:57] LABS: ALKALINE PHOSPHATASE 60 U/L (45-117); BUN 17 mg/dl (7-24); CHLORIDE 103 mmol/L (98-107); CREATININE 1.12 mg/dL (0.70-1.30); POTASSIUM 4.1 mmol/L (3.5-5.1); SGOT/AST 13 IU/L (3-35); SGPT/ALT 26 U/L (12-78); SODIUM 137 mmol/L (136-145); TOTAL PROTEIN 7.4 gm/dL (6.4-8.2)
[2021-12-17 00:18] LABS: LIPASE 96 U/L (73-393)
[2021-12-17 01:11] LABS: BILIRUBIN Negative (Negative); BLOOD Negative (Negative); CLARITY Clear (Clear); COLOR Yellow (Yellow); GLUCOSE Negative (Negative); KETONE Trace (Negative); LEUKO ESTERASE Negative (Negative); NITRITE Negative (Negative); PH 5.5 (4.5-8.0)
[2021-12-17 01:30] LABS: MUCOUS 1+; WBC 0-2 wbc/hpf (0-5)
[2021-12-17] MEDS ORDERED: AMOX-CLAV 875-1 EACH PO (05:16)
[2021-12-17 07:49] VITALS: BP 138/64
== END 2021-12-17 08:38 | disposition home or self-care (01) ==
LOC: ED 22:33
PROVIDERS: Family Medicine
DX: K57.32 Diverticulitis of large intestine without perforation or abscess without bleeding (principal); E66.01 Morbid (severe) obesity due to excess calories; Z87.442 Personal history of urinary calculi; Z88.8 Allergy status to other drugs, medicaments and biological substances; Z79.899 Other long term (current) drug therapy; Z79.2 Long term (current) use of antibiotics; Z79.82 Long term (current) use of aspirin; Z90.49 Acquired absence of other specified parts of digestive tract; Z90.89 Acquired absence of other organs; Z98.890 Other specified postprocedural states; Z87.891 Personal history of nicotine dependence; Z68.30 Body mass index [BMI] 30.0-30.9, adult

== ENCOUNTER 2021-12-19 08:59 | Observation (INO) | payer OTHER ==
[~2021-12-19] VITALS: Ht 177.8 cm; Wt 128.9 kg
[~2021-12-19 08:59] MED LIST changes: +AMOX-CLAV 875-1 EACH PO
[2021-12-19 09:06] VITALS: BP 145/103
[2021-12-19 09:21] VITALS: BP 142/96
[2021-12-19 10:42] LABS: BASO % 0.5 % (0.0-1.0); EOS # 0.1 10*3/uL (0.0-0.4); EOS % 2.3 % (1.0-4.0); LYMPH # 1.3 10*3/uL (1.3-4.4); LYMPH % 20.5 % (27.0-41.0); MEAN CORPUSCULAR HGB CONC 34.1 g/dl (33.0-37.0); MEAN PLATELET VOLUME 10.6 fl (9.6-12.3); MONO # 0.6 10*3/uL (0.1-1.0); MONO % 9.9 % (3.0-9.0); NEUT # 4.1 10*3/uL (2.3-7.9); NEUT % 66.6 % (47.0-73.0); PLATELET COUNT AUTOMATED 176 10*3/uL (130-400); RED BLOOD COUNT 5.23 10*6/uL (4.50-5.90); RED CELL DISTRI WIDTH 13.2 % (0-14.5); WHITE BLOOD COUNT 6.2 10*3/uL (4.8-10.8)
[2021-12-19 10:57] LABS: ALKALINE PHOSPHATASE 57 U/L (45-117); BUN 17 mg/dl (7-24); CHLORIDE 105 mmol/L (98-107); LIPASE 98 U/L (73-393); POTASSIUM 4.3 mmol/L (3.5-5.1); SGOT/AST 11 IU/L (3-35); SGPT/ALT 31 U/L (12-78); SODIUM 139 mmol/L (136-145); TOTAL PROTEIN 7.1 gm/dL (6.4-8.2)
[2021-12-19] MEDS ORDERED: CYCLOBENZAPRIN7.5 M2 PO (12:05)
[2021-12-19 12:23] LABS: BILIRUBIN 1+ (Negative); BLOOD Negative (Negative); CLARITY Clear (Clear); COLOR Dark Yellow (Yellow); GLUCOSE Negative (Negative); KETONE 1+ (Negative); LEUKO ESTERASE Negative (Negative); NITRITE Negative (Negative); PH 5.5 (4.5-8.0); SPECIFIC GRAVITY 1.025 (1.001-1.030)
[2021-12-19 12:51] LABS: MUCOUS 1+; WBC 0-2 wbc/hpf (0-5)
[2021-12-19 20:00] VITALS: BP 136/81
[2021-12-20] VITALS: BP 123/73
[2021-12-20 06:06] LABS: BUN 12 mg/dl (7-24); CHLORIDE 108 mmol/L (98-107); CREATININE 0.97 mg/dL (0.70-1.30); POTASSIUM 4.2 mmol/L (3.5-5.1); SODIUM 142 mmol/L (136-145)
[2021-12-20 06:17] LABS: BASO % 0.4 % (0.0-1.0); EOS # 0.2 10*3/uL (0.0-0.4); EOS % 3.5 % (1.0-4.0); HEMATOCRIT 43.1 % (42.0-52.0); LYMPH # 1.7 10*3/uL (1.3-4.4); LYMPH % 34.1 % (27.0-41.0); MEAN CELL VOLUME 89.2 fl (80.0-94.0); MEAN CORPUSCULAR HGB 29.6 pg (27.0-31.0); MEAN CORPUSCULAR HGB CONC 33.2 g/dl (33.0-37.0); MEAN PLATELET VOLUME 10.9 fl (9.6-12.3); MONO # 0.6 10*3/uL (0.1-1.0); MONO % 12.2 % (3.0-9.0); NEUT # 2.4 10*3/uL (2.3-7.9); NEUT % 49.6 % (47.0-73.0); PLATELET COUNT AUTOMATED 174 10*3/uL (130-400); RED BLOOD COUNT 4.83 10*6/uL (4.50-5.90); WHITE BLOOD COUNT 4.9 10*3/uL (4.8-10.8)
[2021-12-20 08:00] VITALS: BP 126/76
[2021-12-20] MEDS ORDERED: METRONIDAZOLE500 M1 PO (11:52)
[2021-12-20] MEDS ORDERED: HYDROCODONE-AC1 EAC1 PO (11:52)
[2021-12-20] MEDS ORDERED: CIPRO500 MG PO (11:52)
[2021-12-20 12:00] VITALS: BP 128/67
[2021-12-20 16:00] VITALS: BP 100/59
== END 2021-12-20 17:29 | disposition home or self-care (01) ==
LOC: ED 08:59 → EDHOLD 12:13 → 4E 12:13 → EDHOLD 13:38 → 4E 17:28
PROVIDERS: Emergency Medicine; Student in an Organized Health Care Education/Training Program; ADMIT Family Medicine; ATTEND Family Medicine
DX: K57.92 Diverticulitis of intestine, part unspecified, without perforation or abscess without bleeding (principal); I11.0 Hypertensive heart disease with heart failure; I50.9 Heart failure, unspecified; N40.0 Benign prostatic hyperplasia without lower urinary tract symptoms; E78.00 Pure hypercholesterolemia, unspecified; K21.9 Gastro-esophageal reflux disease without esophagitis; E11.65 Type 2 diabetes mellitus with hyperglycemia; R11.2 Nausea with vomiting, unspecified; K82.4 Cholesterolosis of gallbladder; R82.2 Biliuria; E66.01 Morbid (severe) obesity due to excess calories; Z68.41 Body mass index [BMI] 40.0-44.9, adult; Z86.73 Personal history of transient ischemic attack (TIA), and cerebral infarction without residual deficits; Z90.49 Acquired absence of other specified parts of digestive tract; Z90.89 Acquired absence of other organs; Z88.8 Allergy status to other drugs, medicaments and biological substances; Z79.82 Long term (current) use of aspirin; Z79.899 Other long term (current) drug therapy

== ENCOUNTER → 2022-03-13 | Outpatient (CLI) | payer OTHER ==
[~2022-03-13] MED LIST changes: +CYCLOBENZAPRIN7.5 M2 PO; +HYDROCODONE-AC1 EAC1 PO
== END | disposition home or self-care (01) ==
LOC: RAD 14:30
PROVIDERS: ATTEND Family Medicine
DX: R05.9 Cough, unspecified (principal)

== ENCOUNTER → 2023-03-03 | Outpatient (CLI) | payer OTHER ==
[2023-03-03 11:48] LABS: BASO % 0.4 % (0.0-1.0); EOS # 0.2 10*3/uL (0.0-0.4); EOS % 1.7 % (1.0-4.0); HEMATOCRIT 49.4 % (42.0-52.0); LYMPH # 1.5 10*3/uL (1.3-4.4); LYMPH % 14.4 % (27.0-41.0); MEAN CELL VOLUME 88.4 fl (80.0-94.0); MEAN CORPUSCULAR HGB 29.9 pg (27.0-31.0); MEAN CORPUSCULAR HGB CONC 33.8 g/dl (33.0-37.0); MEAN PLATELET VOLUME 10.5 fl (9.6-12.3); MONO % 9.3 % (3.0-9.0); NEUT # 7.9 10*3/uL (2.3-7.9); NEUT % 73.9 % (47.0-73.0); PLATELET COUNT AUTOMATED 227 10*3/uL (130-400); RED BLOOD COUNT 5.59 10*6/uL (4.50-5.90); RED CELL DISTRI WIDTH 12.6 % (0-14.5); WHITE BLOOD COUNT 10.7 10*3/uL (4.8-10.8)
[2023-03-03 11:56] LABS: URINE CREATININE RANDOM 182.35 mg/dL
== END | disposition home or self-care (01) ==
LOC: LAB 11:14
PROVIDERS: ATTEND Nurse Practitioner Family
DX: J43.9 Emphysema, unspecified (principal); M25.78 Osteophyte, vertebrae; Z20.822 Contact with and (suspected) exposure to COVID-19; Z79.899 Other long term (current) drug therapy

== ENCOUNTER 2023-05-29 07:53 | Inpatient (IN) | payer OTHER ==
[~2023-05-29] VITALS: Ht 177.8 cm; Wt 124.0 kg
[2023-05-29 07:57] VITALS: BP 132/80
[2023-05-29] MEDS ORDERED: FAMOTIDINE 50 ML IV ONE (08:10)
[2023-05-29] MEDS ORDERED: ACETAMINOPHEN 325 MG TAB PO ONE (08:10)
[2023-05-29] MEDS ORDERED: SODIUM CHLORIDE 0.9% 1,000 ML IV SCH ×2 (08:10→14:00)
[2023-05-29] MEDS ORDERED: Ondansetron Hydrochloride 4 MG/2 ML VIAL IV ONE (08:10)
[2023-05-29 08:23] LABS: BASO % 0.3 % (0.0-1.0); EOS # 0.1 10*3/uL (0.0-0.4); EOS % 1.2 % (1.0-4.0); HEMATOCRIT 45.8 % (42.0-52.0); LYMPH # 1.2 10*3/uL (1.3-4.4); LYMPH % 12.8 % (27.0-41.0); MEAN CELL VOLUME 87.4 fl (80.0-94.0); MEAN CORPUSCULAR HGB 28.8 pg (27.0-31.0); MEAN PLATELET VOLUME 10.4 fl (9.6-12.3); MONO # 1.3 10*3/uL (0.1-1.0); MONO % 13.1 % (3.0-9.0); NEUT % 72.3 % (47.0-73.0); PLATELET COUNT AUTOMATED 226 10*3/uL (130-400); RED BLOOD COUNT 5.24 10*6/uL (4.50-5.90); RED CELL DISTRI WIDTH 12.9 % (0-14.5); WHITE BLOOD COUNT 9.7 10*3/uL (4.8-10.8)
[2023-05-29 08:33] LABS: ACT PARTIAL THROMBO TIME 27.9 SECONDS (20.0-32.1)
[2023-05-29 08:39] LABS: ALKALINE PHOSPHATASE 76 U/L (46-116); BUN 13 mg/dl (9-23); CHLORIDE 102 mmol/L (98-107); LIPASE 32 U/L (12-53); SGPT/ALT 10 U/L (5-49); TOTAL PROTEIN 7.5 gm/dL (6.0-8.0)
[2023-05-29] MEDS ORDERED: Ketorolac Tromethamine 30 MG/ML VIAL IV ONE (09:15)
[2023-05-29 09:35] LABS: BILIRUBIN 1+ (Negative); BLOOD Negative (Negative); CLARITY Clear (Clear); COLOR Dark Yellow (Yellow); GLUCOSE Negative (Negative); KETONE 1+ (Negative); LEUKO ESTERASE Negative (Negative); NITRITE Negative (Negative); PH 5.5 (4.5-8.0); SPECIFIC GRAVITY 1.025 (1.001-1.030)
[2023-05-29 09:46] LABS: MUCOUS TRACE
[2023-05-29] MEDS ORDERED: CIPROFLOXACIN 200 ML IV ONE (10:40)
[2023-05-29] MEDS ORDERED: METRONIDAZOLE 100 ML IV ONE (10:40)
[2023-05-29] MEDS ORDERED: Piperacillin Sodium/Tazobact 100 ML IV ONE (10:45)
[2023-05-29 11:35] VITALS: BP 103/66
[2023-05-29] MEDS ORDERED: BISACODYL 5 MG TAB PO PRN (12:15)
[2023-05-29] MEDS ORDERED: Ondansetron Hydrochloride 4 MG/2 ML VIAL IV PRN (12:15)
[2023-05-29] MEDS ORDERED: Piperacillin Sodium/Tazobact 0 ML IV SCH (12:45)
[2023-05-29] MEDS ORDERED: Acetaminophen/Hydrocodone ES 7.5/325 tablet PO PRN (12:45)
[2023-05-29] MEDS ORDERED: SODIUM CHLORIDE 0.9% 1,000 ML IV ONE (12:50)
[2023-05-29] MEDS ORDERED: Acetaminophen/Hydrocodone 5 MG/325 MG TABLET PO PRN (14:15)
[2023-05-29 16:22] VITALS: BP 130/80
[2023-05-29] MEDS ORDERED: Piperacillin Sodium/Tazobact 50 ML IV SCH (18:00)
[2023-05-29 18:42] VITALS: BP 127/69
[2023-05-29 20:00] VITALS: BP 124/76
[2023-05-29] MEDS ORDERED: MORPHINE Sulfate 2 MG/ML SYR IV PRN (21:05)
[2023-05-29 22:50] VITALS: BP 130/69
[2023-05-30 05:35] LABS: BUN 12 mg/dl (9-23); CHLORIDE 103 mmol/L (98-107); POTASSIUM 3.8 mmol/L (3.4-5.1)
[2023-05-30 05:56] LABS: BASO % 0.3 % (0.0-1.0); EOS # 0.1 10*3/uL (0.0-0.4); EOS % 1.3 % (1.0-4.0); HEMATOCRIT 42.9 % (42.0-52.0); LYMPH # 1.3 10*3/uL (1.3-4.4); LYMPH % 13.1 % (27.0-41.0); MEAN CELL VOLUME 89.9 fl (80.0-94.0); MEAN CORPUSCULAR HGB 28.7 pg (27.0-31.0); MEAN CORPUSCULAR HGB CONC 31.9 g/dl (33.0-37.0); MEAN PLATELET VOLUME 10.9 fl (9.6-12.3); MONO # 1.1 10*3/uL (0.1-1.0); MONO % 10.7 % (3.0-9.0); NEUT # 7.3 10*3/uL (2.3-7.9); NEUT % 74.2 % (47.0-73.0); PLATELET COUNT AUTOMATED 225 10*3/uL (130-400); RED BLOOD COUNT 4.77 10*6/uL (4.50-5.90); RED CELL DISTRI WIDTH 12.8 % (0-14.5); WHITE BLOOD COUNT 9.9 10*3/uL (4.8-10.8)
[2023-05-30 08:00] VITALS: BP 124/68
[2023-05-30] MEDS ORDERED: Enoxaparin Sodium 40 MG/0.4 ML SYR SC SCH (10:00)
[2023-05-30 12:00] VITALS: BP 124/68
[2023-05-30 15:51] VITALS: BP 93/51
[2023-05-30] MEDS ORDERED: Piperacillin Sodium/Tazobact 50 ML IV SCH (16:00)
[2023-05-30] MEDS ORDERED: POTASSIUM CH/0.45 NS 1,000 ML IV SCH (18:20)
[2023-05-30] MEDS ORDERED: FAMOTIDINE 50 ML IV ONE (18:20)
[2023-05-30 20:00] VITALS: BP 112/86
[2023-05-31] VITALS: BP 112/65
[2023-05-31 05:13] LABS: BUN 10 mg/dl (9-23); CHLORIDE 104 mmol/L (98-107); POTASSIUM 4.2 mmol/L (3.4-5.1)
[2023-05-31 08:00] VITALS: BP 114/68
[2023-05-31] MEDS ORDERED: DOCUSATE SODIUM 100 MG CAP PO SCH (10:00)
[2023-05-31 12:00] VITALS: BP 123/68
[2023-05-31 16:00] VITALS: BP 120/83
[2023-05-31] MEDS ORDERED: Polyethylene Glycol 3350 17 GM PACKET PO SCH (18:15)
[2023-05-31 20:00] VITALS: BP 122/50
[2023-05-31] MEDS ORDERED: FAMOTIDINE 20 MG TAB PO SCH (22:00)
[2023-06-01] VITALS: BP 126/69
[2023-06-01 08:00] VITALS: BP 131/81
[2023-06-01 08:30] LABS: BASO % 0.6 % (0.0-1.0); EOS # 0.2 10*3/uL (0.0-0.4); EOS % 3.3 % (1.0-4.0); HEMATOCRIT 39.3 % (42.0-52.0); LYMPH # 1.4 10*3/uL (1.3-4.4); LYMPH % 26.2 % (27.0-41.0); MEAN CELL VOLUME 86.9 fl (80.0-94.0); MEAN CORPUSCULAR HGB CONC 33.3 g/dl (33.0-37.0); MEAN PLATELET VOLUME 10.3 fl (9.6-12.3); MONO # 0.6 10*3/uL (0.1-1.0); MONO % 11.3 % (3.0-9.0); NEUT # 3.2 10*3/uL (2.3-7.9); NEUT % 58.2 % (47.0-73.0); PLATELET COUNT AUTOMATED 223 10*3/uL (130-400); RED BLOOD COUNT 4.52 10*6/uL (4.50-5.90); RED CELL DISTRI WIDTH 12.4 % (0-14.5); WHITE BLOOD COUNT 5.4 10*3/uL (4.8-10.8)
[2023-06-01 08:53] LABS: BUN 6 mg/dl (9-23); CHLORIDE 103 mmol/L (98-107); POTASSIUM 4.1 mmol/L (3.4-5.1)
[2023-06-01 12:00] VITALS: BP 108/50
[2023-06-01 16:00] VITALS: BP 111/60
[2023-06-01 20:00] VITALS: BP 111/48
[2023-06-02] VITALS: BP 121/61
[2023-06-02 08:00] VITALS: BP 106/52
[2023-06-02] MEDS ORDERED: Polyethylene Glycol 3350 17 GM PACKET PO SCH (10:00)
[2023-06-02 12:00] VITALS: BP 114/75
[2023-06-02 16:00] VITALS: BP 118/53
[2023-06-02 20:00] VITALS: BP 116/61
[2023-06-03] VITALS: BP 106/53
[2023-06-03 05:27] LABS: CHLORIDE 104 mmol/L (98-107)
[2023-06-03 05:42] LABS: BUN < 5 mg/dl (9-23)
[2023-06-03 06:02] LABS: BASO % 0.5 % (0.0-1.0); EOS # 0.2 10*3/uL (0.0-0.4); EOS % 3.1 % (1.0-4.0); HEMATOCRIT 40.5 % (42.0-52.0); LYMPH # 1.9 10*3/uL (1.3-4.4); LYMPH % 30.5 % (27.0-41.0); MEAN CELL VOLUME 87.1 fl (80.0-94.0); MEAN CORPUSCULAR HGB 28.4 pg (27.0-31.0); MEAN CORPUSCULAR HGB CONC 32.6 g/dl (33.0-37.0); MEAN PLATELET VOLUME 10.6 fl (9.6-12.3); MONO # 0.8 10*3/uL (0.1-1.0); MONO % 12.1 % (3.0-9.0); NEUT # 3.3 10*3/uL (2.3-7.9); NEUT % 53.5 % (47.0-73.0); PLATELET COUNT AUTOMATED 245 10*3/uL (130-400); RED BLOOD COUNT 4.65 10*6/uL (4.50-5.90); RED CELL DISTRI WIDTH 12.5 % (0-14.5); WHITE BLOOD COUNT 6.2 10*3/uL (4.8-10.8)
[2023-06-03 07:38] VITALS: BP 118/60
[2023-06-03 11:38] VITALS: BP 116/66
[2023-06-03 16:00] VITALS: BP 119/75
[2023-06-03 20:00] VITALS: BP 123/61
[2023-06-04] VITALS: BP 116/61
[2023-06-04 04:20] LABS: BASO % 0.5 % (0.0-1.0); EOS # 0.1 10*3/uL (0.0-0.4); EOS % 2.5 % (1.0-4.0); HEMATOCRIT 43.9 % (42.0-52.0); LYMPH # 2.2 10*3/uL (1.3-4.4); LYMPH % 38.8 % (27.0-41.0); MEAN CELL VOLUME 87.1 fl (80.0-94.0); MEAN CORPUSCULAR HGB 28.2 pg (27.0-31.0); MEAN CORPUSCULAR HGB CONC 32.3 g/dl (33.0-37.0); MEAN PLATELET VOLUME 9.9 fl (9.6-12.3); MONO # 0.6 10*3/uL (0.1-1.0); MONO % 10.8 % (3.0-9.0); NEUT # 2.7 10*3/uL (2.3-7.9); NEUT % 47.2 % (47.0-73.0); PLATELET COUNT AUTOMATED 259 10*3/uL (130-400); RED BLOOD COUNT 5.04 10*6/uL (4.50-5.90); RED CELL DISTRI WIDTH 12.5 % (0-14.5); WHITE BLOOD COUNT 5.7 10*3/uL (4.8-10.8)
[2023-06-04 04:50] LABS: BUN 8 mg/dl (9-23); CHLORIDE 105 mmol/L (98-107); POTASSIUM 4.3 mmol/L (3.4-5.1)
[2023-06-04 08:00] VITALS: BP 113/66
[2023-06-04 12:00] VITALS: BP 113/74
[2023-06-04] MEDS ORDERED: FAMOTIDINE20 M1 PO (12:00)
== END 2023-06-04 14:20 | disposition home or self-care (01) | DRG 372 ==
LOC: ED 07:53 → 5E 11:01 → EDHOLD 11:01 → 5E 22:10
PROVIDERS: Emergency Medicine; Internal Medicine; Registered Nurse; Student in an Organized Health Care Education/Training Program; ADMIT Student in an Organized Health Care Education/Training Program; ATTEND Student in an Organized Health Care Education/Training Program
DX: A04.9 Bacterial intestinal infection, unspecified (principal); E87.1 Hypo-osmolality and hyponatremia; K63.89 Other specified diseases of intestine; K76.0 Fatty (change of) liver, not elsewhere classified; Z87.891 Personal history of nicotine dependence; Z82.49 Family history of ischemic heart disease and other diseases of the circulatory system; Z90.49 Acquired absence of other specified parts of digestive tract; Z88.8 Allergy status to other drugs, medicaments and biological substances; Z79.1 Long term (current) use of non-steroidal anti-inflammatories (NSAID); Z79.899 Other long term (current) drug therapy

== ENCOUNTER → 2023-07-22 | Outpatient (CLI) | payer OTHER ==
[~2023-07-22] MED LIST changes: +FAMOTIDINE20 M1 PO
[2023-07-22 12:16] LABS: BASO % 0.4 % (0.0-1.0); EOS # 0.1 10*3/uL (0.0-0.4); EOS % 1.7 % (1.0-4.0); HEMATOCRIT 46.2 % (42.0-52.0); LYMPH # 1.6 10*3/uL (1.3-4.4); LYMPH % 23.1 % (27.0-41.0); MEAN CELL VOLUME 88.2 fl (80.0-94.0); MEAN CORPUSCULAR HGB 29.2 pg (27.0-31.0); MEAN CORPUSCULAR HGB CONC 33.1 g/dl (33.0-37.0); MEAN PLATELET VOLUME 10.4 fl (9.6-12.3); MONO # 0.6 10*3/uL (0.1-1.0); MONO % 8.8 % (3.0-9.0); NEUT # 4.6 10*3/uL (2.3-7.9); NEUT % 65.9 % (47.0-73.0); PLATELET COUNT AUTOMATED 221 10*3/uL (130-400); RED BLOOD COUNT 5.24 10*6/uL (4.50-5.90); RED CELL DISTRI WIDTH 13.3 % (0-14.5); WHITE BLOOD COUNT 6.9 10*3/uL (4.8-10.8)
[2023-07-22 12:26] LABS: URINE CREATININE RANDOM 191.78 mg/dL
[2023-07-22 12:41] LABS: ALKALINE PHOSPHATASE 63 U/L (46-116); BUN 14 mg/dl (9-23); CHLORIDE 103 mmol/L (98-107); CHOLESTEROL 183 mg/dL (<200); FREE T4 1.05 ng/dl (0.89-1.76); LDL CHOLESTEROL 120 mg/dL (9-159); POTASSIUM 5.1 mmol/L (3.4-5.1); SGPT/ALT 15 U/L (5-49); TOTAL PROTEIN 7.5 gm/dL (6.0-8.0); TRIGLYCERIDES 125 mg/dl (<150)
== END | disposition home or self-care (01) ==
LOC: LAB 11:42
PROVIDERS: ATTEND Internal Medicine
DX: Z12.5 Encounter for screening for malignant neoplasm of prostate (principal); C18.6 Malignant neoplasm of descending colon; E11.9 Type 2 diabetes mellitus without complications; K21.9 Gastro-esophageal reflux disease without esophagitis; Z85.038 Personal history of other malignant neoplasm of large intestine

== ENCOUNTER → 2024-02-04 | Outpatient (CLI) | payer OTHER | END | disposition home or self-care (01) | LOC: ORTHO 03:31 | PROVIDERS: ATTEND Orthopaedic Surgery | DX: M19.072 Primary osteoarthritis, left ankle and foot (principal); M19.071 Primary osteoarthritis, right ankle and foot; M77.32 Calcaneal spur, left foot; M77.31 Calcaneal spur, right foot ==

== ENCOUNTER → 2024-02-19 | Day surgery (SDC) | payer OTHER | END | disposition home or self-care (01) | LOC: SDC 02-16 08:00 | PROVIDERS: ATTEND Orthopaedic Surgery | DX: G56.01 Carpal tunnel syndrome, right upper limb (principal); Z53.8 Procedure and treatment not carried out for other reasons ==

== ENCOUNTER 2024-03-14 19:43 | Emergency (ER) | payer OTHER ==
[~2024-03-14] VITALS: Ht 177.8 cm; Wt 113.4 kg
[2024-03-14] MEDS ORDERED: ELIQUIS5 M1 PO (20:17)
[2024-03-14] MEDS ORDERED: CITALOPRAM20 MG PO (20:17)
[2024-03-14] MEDS ORDERED: ASPIRIN ADULT L81 M1 PO (20:17)
[2024-03-14] MEDS ORDERED: HEARTBURN RELIE20 MG PO (20:18)
[2024-03-14] MEDS ORDERED: NEURONTIN300 MG PO (20:18)
[2024-03-14] MEDS ORDERED: TAMSULOSIN HCL0.4 MG PO (20:18)
[2024-03-14] MEDS ORDERED: OMEPRAZOLE40 MG PO (20:19)
[2024-03-14] MEDS ORDERED: SODIUM CHLORIDE 0.9% 1,000 ML IV ONE ×2 (20:35→23:20)
[2024-03-14 21:16] LABS: BASO % 0.4 % (0.0-1.0); EOS # 0.1 10*3/uL (0.0-0.4); EOS % 1.5 % (1.0-4.0); HEMATOCRIT 47.7 % (42.0-52.0); MEAN CELL VOLUME 89.5 fl (80.0-94.0); MEAN CORPUSCULAR HGB 30.2 pg (27.0-31.0); MEAN CORPUSCULAR HGB CONC 33.8 g/dl (33.0-37.0); MEAN PLATELET VOLUME 10.4 fl (9.6-12.3); MONO # 0.6 10*3/uL (0.1-1.0); MONO % 8.6 % (3.0-9.0); NEUT # 3.8 10*3/uL (2.3-7.9); PLATELET COUNT AUTOMATED 215 10*3/uL (130-400); RED BLOOD COUNT 5.33 10*6/uL (4.50-5.90); RED CELL DISTRI WIDTH 12.4 % (0-14.5); WHITE BLOOD COUNT 6.7 10*3/uL (4.8-10.8)
[2024-03-14 21:37] LABS: BUN 16 mg/dl (9-23); CHLORIDE 100 mmol/L (98-107); POTASSIUM 4.6 mmol/L (3.4-5.1)
[2024-03-14] MEDS ORDERED: Ketorolac Tromethamine 30 MG/ML VIAL IV ONE (23:55)
[2024-03-15 00:01] VITALS: BP 131/74
[2024-03-15] MEDS ORDERED: AMOX-CLAV 875-1 EACH PO (01:58)
== END 2024-03-15 02:04 | disposition home or self-care (01) ==
LOC: ED 19:43
PROVIDERS: Internal Medicine
DX: I95.1 Orthostatic hypotension (principal); J01.00 Acute maxillary sinusitis, unspecified; R42 Dizziness and giddiness; R51.9 Headache, unspecified; J44.9 Chronic obstructive pulmonary disease, unspecified; K21.9 Gastro-esophageal reflux disease without esophagitis; F32.A Depression, unspecified; I10 Essential (primary) hypertension; Z86.73 Personal history of transient ischemic attack (TIA), and cerebral infarction without residual deficits; F41.9 Anxiety disorder, unspecified; Z91.030 Bee allergy status; Z88.8 Allergy status to other drugs, medicaments and biological substances; Z98.890 Other specified postprocedural states; Z90.49 Acquired absence of other specified parts of digestive tract; Z90.89 Acquired absence of other organs

== ENCOUNTER 2024-09-22 16:07 | Emergency (ER) | payer OTHER ==
[~2024-09-22] VITALS: Ht 175.2 cm; Wt 128.4 kg
[~2024-09-22 16:07] MED LIST changes: +ASPIRIN ADULT L81 M1 PO; +CITALOPRAM20 MG PO; +ELIQUIS5 M1 PO; +HEARTBURN RELIE20 MG PO; +OMEPRAZOLE40 MG PO; +TAMSULOSIN HCL0.4 MG PO
[2024-09-22 16:19] VITALS: BP 130/86
[2024-09-22] MEDS ORDERED: Carafate1 GM PO (16:21)
[2024-09-22] MEDS ORDERED: MORPHINE Sulfate 2 MG/ML SYR IV ONE (16:30)
[2024-09-22] MEDS ORDERED: Ondansetron Hydrochloride 4 MG/2 ML VIAL IV ONE (16:30)
[2024-09-22] MEDS ORDERED: SODIUM CHLORIDE 0.9% 1,000 ML IV ONE (16:30)
[2024-09-22 16:39] LABS: BASO % 0.5 % (0.0-1.0); EOS # 0.1 10*3/uL (0.0-0.4); EOS % 2.3 % (1.0-4.0); HEMATOCRIT 44.5 % (42.0-52.0); MEAN CELL VOLUME 88.5 fl (80.0-94.0); MEAN CORPUSCULAR HGB CONC 33.9 g/dl (33.0-37.0); MEAN PLATELET VOLUME 10.4 fl (9.6-12.3); MONO # 0.5 10*3/uL (0.1-1.0); MONO % 9.2 % (3.0-9.0); NEUT # 3.3 10*3/uL (2.3-7.9); NEUT % 57.5 % (47.0-73.0); PLATELET COUNT AUTOMATED 185 10*3/uL (130-400); RED BLOOD COUNT 5.03 10*6/uL (4.50-5.90); RED CELL DISTRI WIDTH 12.3 % (0-14.5); WHITE BLOOD COUNT 5.8 10*3/uL (4.8-10.8)
[2024-09-22 17:05] LABS: BUN 15 mg/dl (9-23); CHLORIDE 101 mmol/L (98-107); POTASSIUM 3.9 mmol/L (3.4-5.1)
== END 2024-09-22 17:53 | disposition home or self-care (01) ==
LOC: ED 16:07
PROVIDERS: Emergency Medicine
DX: R07.89 Other chest pain (principal); R42 Dizziness and giddiness; Z88.8 Allergy status to other drugs, medicaments and biological substances; Z91.030 Bee allergy status; Z79.82 Long term (current) use of aspirin; Z79.899 Other long term (current) drug therapy; Z90.49 Acquired absence of other specified parts of digestive tract; Z90.89 Acquired absence of other organs; Z87.891 Personal history of nicotine dependence; E11.9 Type 2 diabetes mellitus without complications; I10 Essential (primary) hypertension; E78.5 Hyperlipidemia, unspecified